=== PATIENT | female | born 1985 | race Caucasian/White ===

== ENCOUNTER 2017-01-30 07:24 | Emergency (ER) | payer OTHER ==
[~2017-01-30] VITALS: Ht 157.5 cm; Wt 60.5 kg
[2017-01-30 07:25] VITALS: BP 110/69; PULSE 70; RESP 14; O2SAT 100
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
[2017-01-30] MEDS ORDERED: cefTRIAXone Inj 2,000 MG in Dextrose 5% Minibag Plus 50 ML IV ONE (08:10)
[2017-01-30 09:25] LABS: APPEARANCE,URINE CLOUDY (CLEAR,HAZY); COLOR,URINE YELLOW (YELLOW)
[2017-01-30 09:26] LABS: OCCULT BLOOD,URINE LARGE (NEGATIVE); PH,URINE 6.5 (5.0-8.0); UROBILINOGEN,URINE NORMAL (NORMAL)
[2017-01-30] MEDS ORDERED: CEPH500T PO (09:46)
[2017-01-30] MEDS ORDERED: PHEN-777 PO (09:46)
[2017-01-30 10:00] VITALS: BP 99/58; PULSE 70; RESP 16; O2SAT 99
== END 2017-01-30 10:03 | disposition home or self-care (01) ==
LOC: SED 07:24
DX: N12 Tubulo-interstitial nephritis, not specified as acute or chronic (principal); R61 Generalized hyperhidrosis; R53.83 Other fatigue; Z87.440 Personal history of urinary (tract) infections; Z87.442 Personal history of urinary calculi; Z98.890 Other specified postprocedural states; Z88.5 Allergy status to narcotic agent
CPT/HCPCS: 81000; 81025; 87086; 87088; 96365; 99284; J0696